=== PATIENT | female | born 1995 | race Caucasian/White ===

== ENCOUNTER 2018-05-21 20:17 | Observation (INO) ==
--- NOTE | 2018-05-21 20:49 | OB/GYN History & Physical ---
Date of Encounter: 05/21/18 Time of Encounter: 20:40 Assessment and Plan (1) Left leg swelling Current visit: Yes Status: Acute 1. Patient to receive lower left extremity doppler ultrasound for the assessment of DVT potential. History of Present Illness Chief complaint: Left-side swelling + edema HPI: Ms. Quevedo is a 23 year old female () presenting to [facility] at 34 weeks + 1 days for a one week history of progressive, worsening unilateral left-sided swelling which the patient states has become significantly worse over the past 48 hours. The patient is alert, sitting upright in hospital bed and engaged to conversation. She is answering questions appropriately, speech is fluid. There are no gross neurological deficits noted to physical exam. Review of systems: 1. The patient also admits to lower back pain at the level of the L5-S1 junction with radiculopathy into the left gluteal region. The patient states that her back pain is intermittent and exacerbated with movement. 2. The patient states that this is her first and denies any previous history of similar episode. 3. The patient denies headache, vision change, chest pain, shortness of breath, nausea and vomiting. Past Med Surg Social Fam HX - Past Medical History Medical history: other Additional medical history: Kidney Stones Psychiatric history: no psych history - Social History Smoking Status: Never smoker Smokeless Tobacco Status: No Alcohol use: none Drug use: none - Family History Mother Adopted: [place]: christina hnut Age: 43 Family Member Ethnicity: Non- Living Status: Still Living Hx Family Cardiac Disorders: No Hx Family Respiratory Disorders: No Hx Family Cancer: No Hx Family GI Disorders: No Hx Family Genitourinary Disorders: No Hx Family Endocrine Disorder: No Hx Family Musculoskeletal Disorders: No Hx Family Neuromuscular Disorders: No Hx Family Neurologic Disorders: No Hx Family HEENT Disorders: No Hx Family Autoimmune Disorders: No Hx Family Reproductive Disorders: No Hx Family Psychosocial Disorders: No Hx Family Medical Disorders: No Medications and Allergies Ondansetron HCl [Zofran] 4 mg PO Q6H PRN #20 tablet 02/11/17 [Rx] 3 Allergy/AdvReac Type Severity Reaction Status Date / Time No Known Allergies Allergy Verified 02/11/17 16:48 Review of System OB All systems PM: reviewed and no additional remarkable complaints except as stated Exam - Constitutional Constitutional: well developed, well nourished, no acute distress, average body habitus - HEENT HEENT: Normocephaly, Mucus Membranes Moist - Neck Neck exam: normal inspection, trachea midline - Lungs Respiratory exam: wheezes (Mild wheezes noted in the bilateral upper lung pierce ) - Cardiovascular Cardiovascular exam: RRR, +S1, +S2 - Extremities Extremities exam: normal capillary refill, pedal edema (1+ pitting edema in right lower extremity. 3+ pitting edema in left lower extremity ), warm, radial pulses palpable and symmetrical (There is slight swelling noted in the left upper extremity when compared to the right upper extremity. Pulse, motor and sensation are intact in all 4 extremities. ) Results All other labs normal. - VTE Reasons for not Prescribing Prophylaxis: Treatment not Indicated - Low risk for VTE
[2018-05-21 21:27] LABS: Amphetamine Screen,Urine Negative ng/mL (Cutoff=1000); Barbiturate Screen,Urine Negative ng/mL (Cutoff=200); Benzodiazepines Screen,Urine Negative ng/mL (Cutoff=200); Cannabinoid Screen,Urine Negative ng/mL (Cutoff = 50); Cocaine Screen,Urine Negative ng/mL (Cutoff= 300); Opiate Screen,Urine Negative ng/mL (Cutoff=300); Phencyclidine Screen,Urine Negative ng/mL (Cutoff=25)
== END 2018-05-21 22:23 | disposition home or self-care (01) ==
LOC: 1NENULAB
PROVIDERS: ADMIT Advanced Practice Midwife; ATTEND Advanced Practice Midwife

== ENCOUNTER → 2018-06-09 21:32 | Observation (INO) ==
[2018-06-09 20:41] LABS: Amphetamine Screen,Urine Negative ng/mL (Cutoff=1000); Barbiturate Screen,Urine Negative ng/mL (Cutoff=200); Benzodiazepines Screen,Urine Negative ng/mL (Cutoff=200); Cannabinoid Screen,Urine Negative ng/mL (Cutoff = 50); Cocaine Screen,Urine Negative ng/mL (Cutoff= 300); Opiate Screen,Urine Negative ng/mL (Cutoff=300); Phencyclidine Screen,Urine Negative ng/mL (Cutoff=25)
[~2018-06-09 21:32] MED LIST: Acetaminophen 325 MG TABLET PO ONE
--- NOTE | 2018-06-09 22:40 | OB/GYN Progress Note ---
Date of Encounter: 06/09/18 Time of Encounter: 22:40 - Assessment and Plan (1) 36 weeks gestation of Status: Acute (2) Elevated blood pressure affecting in third trimester, antepartum Status: Acute Patient with normal blood pressures and L&D triage, reviewed lab results that were drawn in office today, all PIH labs negative. Discharged home with labor and PIH precautions. Patient verbalizes understanding Subjective - Subjective Interval history: 36+ recessed recent presents to triage for PIH evaluation. Patient was seen in office today with Dr. Rowe, was noted to have markedly increase in edema and a 10 pound weight gain in last week. PIH labs were drawn in the office. Patient presents to triage with concern over blood pressure taken at home that was 138/100. Reports good movement, and occasional cramping since vaginal exam in office denies vaginal bleeding or leaking of fluid. Reports headache, relieved by Tylenol, denies right upper quadrant pain or visual disturbances Antepartum ROS: movement normal, contractions, no loss of fluid, no vaginal bleeding Objective - Vital Signs Vital Signs: Intake and Output 06/09/18 06/09/18 06/09/18 07:59 15:59 23:59 Other: Weight 95 kg Patient Weight 06/09/18 23:59 Weight 95 kg - Exam FHR: auscultation normal FHR comments: Baseline 145 Auscultation: bilateral: normal Abdomen: Present: soft, gravid Cervical dilation: Closed per RN Comments: +4 edema to bilateral lower extremities, +3 DTRs
== END | disposition home or self-care (01) ==
LOC: 1NENULAB
PROVIDERS: ADMIT Advanced Practice Midwife; ATTEND Advanced Practice Midwife

== ENCOUNTER 2018-06-19 22:54 | Inpatient (IN) ==
[2018-06-19 20:44] LABS: Basophils % 0.2 %; Eosinophils # 0.1 K/mcL (0.0-0.6); Eosinophils % 0.4 %; Hematocrit 37.4 % (35.3-44.9); Hemoglobin 12.6 g/dL (11.5-15.4); Immature Granulocytes % 0.9 % (0-4); Lymphocytes # 2.8 K/mcL (0.6-4.6); Mean Corpuscular HGB Conc 33.7 g/dL (31.6-35.5); Mean Corpuscular Hemoglobin 32.1 pg (28.0-33.3); Mean Corpuscular Volume 95.4 fL (83.0-100.0); Mean Platelet Volume 13.1 fL (9.4-12.4); Monocytes # 1.1 K/mcL (0.0-1.3); Monocytes % 8.9 %; Neutrophils # 8.6 K/mcL (1.6-8.9); Platelet Count 161 K/mcL (140-400); Red Blood Count 3.92 M/mcL (3.82-4.97); Red Cell Distribution Width 14.2 % (11.5-14.5); Segmented Neutrophils % 67.6 %
[2018-06-19 20:48] LABS: Bilirubin,Urine Negative (Negative); Blood,Urine Negative (Negative); Clarity,Urine Clear (Clear); Color,Urine Yellow (Yellow); Glucose,Urine (UA) Normal (Normal); Ketones,Urine Negative (Negative); Leukocyte Esterase,Urine Negative (Negative); Nitrite,Urine Negative (Negative); Protein,Urine Negative (Neg-Trace); Specific Gravity,Urine 1.006 (1.010-1.025); Urobilinogen,Urine Normal (Normal)
[2018-06-19 20:55] LABS: Amphetamine Screen,Urine Negative ng/mL (Cutoff=1000); Barbiturate Screen,Urine Negative ng/mL (Cutoff=200); Benzodiazepines Screen,Urine Negative ng/mL (Cutoff=200); Cannabinoid Screen,Urine Negative ng/mL (Cutoff = 50); Cocaine Screen,Urine Negative ng/mL (Cutoff= 300); Opiate Screen,Urine Negative ng/mL (Cutoff=300); Phencyclidine Screen,Urine Negative ng/mL (Cutoff=25); Protein/Creatinine Ratio,Urine 0.28 mg/mg (0.00-0.20)
[2018-06-19 21:01] LABS: Alanine Aminotransferase 9 Units/L (7-52); Aspartate Amino Transferase 18 Units/L (13-39); BUN/Creatinine Ratio 11 (6-26); Blood Urea Nitrogen 8 mg/dL (6-20); Lactate Dehydrogenase 146 Units/L (140-271); Uric Acid 7.3 mg/dL (2.3-7.6); eGFR For Non-African Americans > 60 (> 60)
--- NOTE | 2018-06-19 21:19 | OB/GYN History & Physical ---
Date of Encounter: 06/19/18 Time of Encounter: 21:17 Assessment and Plan (1) 38 weeks gestation of Current visit: Yes Status: Acute Admit for IOL secondary to preeclampsia POC per consult with Dr Moises Tavarez GBS negative Discussed risk of IOL with current bob score related to vaginal delivery vs . (2) Preeclampsia Current visit: Yes Status: Acute Qualifiers: Trimester: third trimester Qualified Code(s): O14.93 - Unspecified pre- eclampsia, third trimester History of Present Illness Chief complaint: Elevated blood pressures and feels bad x 2 days HPI: Ms. Quevedo is a 23 year old at 38 weeks and 1 day that presents to labor and delivery with c/o increased blood pressure in 130's/90-100's, headaches, seeing stars, and general malaise for 2 days. She states she had a PIH evaluation after being seen in the office last week and was discharged with PIH precautions. She states positive movement. She had a growth ultrasound completed on 06/16 with an EFW of 3970g in the 98% with an JEANA of 14. Labs: GBS negative Blood type O- Hep B Neg HIV NR Rubella immune Varicella immune RPR negative Past Med Surg Social Fam HX - Past Medical History Medical history: other Additional medical history: Kidney Stones, hypothyrodisim Psychiatric history: no psych history - Past Surgical History Additional surgical history: surgical kidney stone removal 08/2011 - Social History Smoking Status: Never smoker Smokeless Tobacco Status: No Alcohol use: none Drug use: none - Family History Mother Adopted: No Family Member Ethnicity: Non- Living Status: Still Living Hx Family Cardiac Disorders: No Hx Family Respiratory Disorders: No Hx Family Cancer: No Hx Family GI Disorders: No Hx Family Genitourinary Disorders: No Hx Family Endocrine Disorder: No Hx Family Musculoskeletal Disorders: No Hx Family Neuromuscular Disorders: No Hx Family Neurologic Disorders: No Hx Family HEENT Disorders: No Hx Family Autoimmune Disorders: No Hx Family Reproductive Disorders: No Hx Family Psychosocial Disorders: No Hx Family Medical Disorders: No Father Hx Family Cardiac Disorders: Yes (hypertension) Hx Family Respiratory Disorders: No Hx Family Cancer: No Hx Family GI Disorders: No Hx Family Genitourinary Disorders: No Hx Family Endocrine Disorder: No Hx Family Musculoskeletal Disorders: No Hx Family Neuromuscular Disorders: No Hx Family Neurologic Disorders: No Hx Family HEENT Disorders: No Hx Family Autoimmune Disorders: No Hx Family Reproductive Disorders: No Hx Family Psychosocial Disorders: No Obstetrical History - Pregnancies : 1 Para: 0 Term: 0 : 0 Ab's: 0 Livin Medications and Allergies [place] Thyroid 30 mg PO DAILY 06/19/18 [History] Tablet 1 tab PO DAILY 06/19/18 [History] 3 Allergy/AdvReac Type Severity Reaction Status Date / Time No Known Allergies Allergy Verified 02/11/17 16:48 Review of System OB All systems PM: reviewed and no additional remarkable complaints except as stated - Constitutional Constitutional ROS IM: as per HPI, fatigue, malaise - Integumentary Integumentary: swelling Exam - Constitutional Constitutional: well developed, well nourished, no acute distress, average body habitus - HEENT HEENT: Normocephaly, Mucus Membranes Moist - Neck Neck exam: full ROM - Lungs Respiratory exam: CTAB - Cardiovascular Cardiovascular exam: RRR, +S1, +S2 - Abdomen Abdomen: Present: bowel sounds normal, gravid, non tender - Extremities Extremities exam: normal capillary refill, normal inspection, pedal edema (2+), radial pulses palpable and symmetrical Deep Tendon Reflex Grade: 2+ Normal - Vulva Vulva: bilateral: normal - Cervix Dilation: 0 Effacement: 50 Station: -2 Results Result Diagrams: 06/19/18 20:31 06/19/18 20:31 Abnormal lab results WBC 12.7 K/mcL (4.3-11.1) H 06/19/18 20:31 MPV 13.1 fL (9.4-12.4) H 06/19/18 20:31 Ur Specific [place] 1.006 (1.010-1.025) L 06/19/18 20:31 Protein/Creatinin Ratio 0.28 mg/mg (0.00-0.20) H 06/19/18 20:31 All other labs normal. - VTE Reasons for not Prescribing Prophylaxis: Treatment not Indicated - Low risk for VTE
[~2018-06-19 22:54] MED LIST changes: +*HR* Nalbuphine 10 MG/ML AMPUL IVP PRN; -Acetaminophen 325 MG TABLET PO ONE; +Famotidine 20 MG/2 ML VIAL IVP PRN; +Metoclopramide 10 MG/2 ML VIAL IVP PRN; +Naloxone 0.4 MG/ML INJ IVP PRN; +Ringers Solution, Lactated 1,000 ML IVC SCH
--- NOTE | 2018-06-19 23:39 | OB Labor Progress Note ---
Date of Encounter: 06/19/18 Time of Encounter: 23:37 Labor Progress Note - Subjective Subjective: Pt feeling cramps. Pt also with headache. - Cervix Cervix: cl/50/-3, post. - Heart Tones Heart Tones: RNST - [place]: irregular contractions - Interventions Interventions: Attempt made at placement of malcolm catheter with guide wire, then speculum and guide wire, then with assistance of ring forceps. Pt very tense and did not tolerate well. Cervix is very posterior. Will place cervidil. - Plan Plan: Will place cervidil. Attempted malcolm cath placement was unsucessful. weight expected to be 8lb 15 oz. Given unfavorable cervix d/w pt option of primary . She declines this at this time and desires trial of labor.
[2018-06-20] MEDS: Ondansetron 4 MG/2 ML VIAL IVP PRN ×2 (01:39→07:39)
[2018-06-20] MEDS ORDERED: Penicillin G Potassium 5,000,000 UNIT in 0.9 % Sodium Chloride Mini Bag 100 ML IVPB ONE (02:05)
[2018-06-20] MEDS ORDERED: Penicillin G Potassium 2,500,000 UNIT in 0.9 % Sodium Chloride 100 ML IVPB SCH (04:00)
--- NOTE | 2018-06-20 10:12 | OB/GYN Progress Note ---
Date of Encounter: 06/20/18 Time of Encounter: 10:00 - Assessment and Plan (1) First in adolescent 16 years of age or older in third trimester Current Visit: Yes Status: Acute (2) Mild preeclampsia Current Visit: Yes Status: Acute We will admit the patient to the antepartum floor where we will start a 24 urine protein and repeat PIH labs in a.m. Qualifiers: Trimester: third trimester Qualified Code(s): O14.03 - Mild to moderate pre -eclampsia, third trimester (3) 38 weeks gestation of Current Visit: Yes Status: Acute Subjective - Subjective Interval history: Patient complaining of occasional headaches occasional scotoma and occasional blurred vision but not sure this because she is just waking up. Patient's blood pressure has been stable throughout the night and she is just having irritability from the Cervidil. Did have a long discussion with the patient about her situation she does show signs of mild preeclampsia but she has a very unfavorable cervix and it is very difficult for us to evaluate her. I did attempt to do a pelvic exam on her but she clamps her legs down and I cannot feel the cervix to even see whether or not she is dilated. We attempted multiple times just a day to put a Vaughn in even with a speculum unsuccessfully. We did talk to anesthesia about an early epidural however after long discussion I feel we still too early to proceed on with induction at this time and I would recommend admitting her to the antepartum floor repeating PIH labs and doing a 24-hour urine. Her protein creatinine ratio did increase after a week from 0.19-0.28 and I do suspect that this is coming get worse with time. She does have an LGA baby which might be why we cannot feel the cervix well. At this particular time being only 38 weeks and 2 days it is difficult to proceed on directly with a section without a trial of labor and without additional lab work or 24 urine to justify her preeclamptic status. Did have a long discussion with the patient and she is okay with going to the floor where we can allow her to eat shower and start the 24 hour urine Antepartum ROS: movement normal Objective - Vital Signs Vital Signs: Intake and Output 06/19/18 06/20/18 06/20/18 23:59 07:59 15:59 Other: Weight 95.6 kg - Exam FHR: category 1 FHR comments: heart tones 140s reactive irritability noted from the cervidil Abdomen: Present: normal appearance, soft, gravid Cervical dilation: closed Cervix effacement: 50 station: -3 ballotable - Labs Labs: Abnormal lab results WBC 12.7 K/mcL (4.3-11.1) H 06/19/18 20:31 MPV 13.1 fL (9.4-12.4) H 06/19/18 20:31 Ur Specific [place] 1.006 (1.010-1.025) L 06/19/18 20:31 Protein/Creatinin Ratio 0.28 mg/mg (0.00-0.20) H 06/19/18 20:31
[2018-06-20] MEDS ORDERED: Ondansetron ODT 4 MG TAB.RAPDIS SL PRN (12:08)
[2018-06-20] MEDS ORDERED: Acetaminophen 325 MG TABLET PO PRN (12:08)
[2018-06-20 12:56] LABS: Basophils % 0.2 %; Eosinophils % 0.1 %; Hematocrit 33.9 % (35.3-44.9); Hemoglobin 11.4 g/dL (11.5-15.4); Immature Granulocytes % 0.5 % (0-4); Lymphocytes # 1.7 K/mcL (0.6-4.6); Lymphocytes % 10.6 %; Mean Corpuscular HGB Conc 33.6 g/dL (31.6-35.5); Mean Corpuscular Hemoglobin 32.1 pg (28.0-33.3); Mean Corpuscular Volume 95.5 fL (83.0-100.0); Mean Platelet Volume 13.2 fL (9.4-12.4); Neutrophils # 13.6 K/mcL (1.6-8.9); Platelet Count 147 K/mcL (140-400); Red Blood Count 3.55 M/mcL (3.82-4.97); Red Cell Distribution Width 14.2 % (11.5-14.5); Segmented Neutrophils % 82.6 %
[2018-06-20 13:12] LABS: Alanine Aminotransferase 10 Units/L (7-52); Aspartate Amino Transferase 18 Units/L (13-39); BUN/Creatinine Ratio 15 (6-26); Blood Urea Nitrogen 9 mg/dL (6-20); Lactate Dehydrogenase 142 Units/L (140-271); Uric Acid 7.6 mg/dL (2.3-7.6); eGFR For Non-African Americans > 60 (> 60)
[2018-06-20] MEDS: Thyroid (Amour) 30 MG TABLET PO SCH (13:16)
[2018-06-21] MEDS: Thyroid (Amour) 30 MG TABLET PO SCH (08:25)
[2018-06-21] MEDS ORDERED: Prenatal Vit/FA 1 EACH TABLET PO SCH (09:00)
[2018-06-21 11:32] LABS: Total Volume 24 Hour,Urine 2.21 Liters (0.60-1.60)
[2018-06-21 11:32] LABS: Total Volume 24 Hour,Urine 2.21 Liters (0.60-1.60)
[2018-06-21 11:45] LABS: Protein/Creatinine Ratio,Urine 0.19 mg/mg (0.00-0.20)
--- NOTE | 2018-06-21 15:08 | OB/GYN Progress Note ---
Date of Encounter: 06/21/18 Time of Encounter: 15:04 - Assessment and Plan (1) Severe headache Current Visit: Yes Status: Acute Suspect pt is symptomatic b/c of likely impending preeclampsia vs preeclampsia (2) 38 weeks gestation of Current Visit: Yes Status: Acute RNST (3) Elevated blood pressure affecting in third trimester, antepartum Current Visit: No Status: Acute As per [place] pt with atleast gestational hypertension and possibly preeclmapsia with severe DENNIS and swelling. D/w [facility] MFM and they advise proceeding with delivery. EFWT is > 98% and her cervix is very unfavorable. Given the above pt desires primary . She is aware of operative risks and appropriate consent has been obtained Subjective - Subjective Principal diagnosis: 38w3d gestation, gestational hypertension, severe headache (intractable), n Interval history: 23yo female at 38w3d gestation admitted Alli night with elevated BP's 130 's-140's/90's-102 with DENNIS for 2 days that was not resolved with Tylenol. She also has nausea without emesis. She reports worsening of edema. OnL&D her BP' s improved, her labs were normal though her Protein/Creatinine ration had worsened and Uric acid and Cr were relatively elevated. B/c or Prot/Cr ratio was 0.28 and her cervix was extremly unfavorable decision was made to transfer to [facility] for 24 hour urine. Today she continues to have severe DENNIS and she hasn't taken Tylenol b/c it doesn't help. Her DTR's are 3+ and she has one beat of clonus. Her BP's have improved. Her 24 hour proten was 265. Of note her EFWT was >98%. I have spoken with [facility] and the agree that pt likely has preeclampsia based on neurologic sx's and delivery is indicated, they also state given her gestational age delivery is indicated. Pt is worried about trial of labor b/c attempts at cervical ripening 2 nights ago were very painful and her baby is estimated to be quite big and her cervix is unfavorable therefore she requests primary . Objective - Vital Signs Vital Signs: Vital Signs Temp Pulse Resp BP Pulse Ox 06/21/18 12:11 97.6 F 98 14 130/88 98 06/21/18 08:10 98.3 F 99 16 112/73 98 06/21/18 03:49 98.0 F 91 16 106/66 98 06/21/18 00:13 98.1 F 88 16 105/67 98 06/20/18 19:30 97.8 F 102 14 129/88 98 06/20/18 15:42 97.9 F 95 16 109/69 Intake and Output 06/20/18 06/21/18 06/21/18 23:59 07:59 15:59 Intake Total 400 / 400 0 / 0 Output Total 950 / 950 400 / 400 450 / 450 Balance -550 / -550 -400 / -400 -450 / -450 Intake: Oral 400 / 400 0 / 0 Output: Urine 950 / 950 400 / 400 450 / 450 Other: Meal Dinner Percent of Meal Consumed 100% Weight 95.436 kg Patient Weight 06/21/18 23:59 Weight 95.436 kg - Exam FHR: category 1 Auscultation: bilateral: normal Abdomen: Present: gravid Cervical dilation: cl Cervix effacement: th station: -2 - Labs Labs: Abnormal lab results WBC 16.4 K/mcL (4.3-11.1) H 06/20/18 12:39 RBC 3.55 M/mcL (3.82-4.97) L 06/20/18 12:39 Hgb 11.4 g/dL (11.5-15.4) L 06/20/18 12:39 Hct 33.9 % (35.3-44.9) L 06/20/18 12:39 MPV 13.2 fL (9.4-12.4) H 06/20/18 12:39 Neutrophils # 13.6 K/mcL (1.6-8.9) H 06/20/18 12:39 Ur Specific [place] 1.006 (1.010-1.025) L 06/19/18 20:31 Urine Total Volume 2.21 Liters (0.60-1.60) H 06/21/18 10:20 Ur Total Protein 24 Hr 265 mg/day (50-80) H 06/21/18 10:15
[2018-06-21] MEDS ORDERED: Ringers Solution, Lactated 1,000 ML IVC SCH ×4 (15:30→17:00)
[2018-06-21 15:45] LABS: Basophils % 0.2 %; Eosinophils % 0.1 %; Hematocrit 36.6 % (35.3-44.9); Hemoglobin 12.2 g/dL (11.5-15.4); Immature Granulocytes % 0.7 % (0-4); Lymphocytes # 2.3 K/mcL (0.6-4.6); Lymphocytes % 19.9 %; Mean Corpuscular HGB Conc 33.3 g/dL (31.6-35.5); Mean Corpuscular Hemoglobin 31.7 pg (28.0-33.3); Mean Corpuscular Volume 95.1 fL (83.0-100.0); Monocytes # 0.9 K/mcL (0.0-1.3); Monocytes % 7.4 %; Neutrophils # 8.3 K/mcL (1.6-8.9); Platelet Count 158 K/mcL (140-400); Red Blood Count 3.85 M/mcL (3.82-4.97); Red Cell Distribution Width 14.5 % (11.5-14.5); Segmented Neutrophils % 71.7 %
[2018-06-21] MEDS ORDERED: *HR* Morphine Sulfate/PF 10 MG/10 ML AMPUL ONE (15:53)
[2018-06-21] MEDS ORDERED: *HR* FentaNYL (PF) 100 MCG/2 ML VIAL ONE (15:53)
[2018-06-21] MEDS ORDERED: Ondansetron 4 MG/2 ML VIAL ONE (15:54)
[2018-06-21] MEDS ORDERED: Lidocaine -MPF 1% 5 ML AMPUL ONE (15:54)
[2018-06-21] MEDS ORDERED: *HR* Oxytocin 10 UNIT/ML VIAL IM ONE (15:54)
[2018-06-21] MEDS ORDERED: EPHEDrine 50 MG/ML VIAL ONE (15:54)
[2018-06-21] MEDS ORDERED: Water for inj. (sterile) 10 ML IV ONE (15:54)
[2018-06-21] MEDS ORDERED: *HR* Phenylephrine 10 MG/ML VIAL ONE (15:59)
[2018-06-21 16:01] LABS: Alanine Aminotransferase 11 Units/L (7-52); Aspartate Amino Transferase 26 Units/L (13-39); BUN/Creatinine Ratio 11 (6-26); Blood Urea Nitrogen 7 mg/dL (6-20); Lactate Dehydrogenase 210 Units/L (140-271); Uric Acid 7.9 mg/dL (2.3-7.6); eGFR For Non-African Americans > 60 (> 60)
[2018-06-21] MEDS ORDERED: Famotidine 20 MG/2 ML VIAL IVP ONE (16:13)
[2018-06-21] MEDS ORDERED: CeFAZolin Premix DUPLEX 2,000 MG/50 ML BAG IVPB ONE (16:13)
[2018-06-21] MEDS ORDERED: Metoclopramide 10 MG/2 ML VIAL IVP ONE (16:13)
[2018-06-21] MEDS ORDERED: Oxytocin 20 units/ LR 1000 mL 20 UNIT/1,000 ML BAG IVC ONE (16:13)
[2018-06-21] MEDS ORDERED: Oxytocin 20 units/ LR 1000 mL 20 UNIT/1,000 ML BAG IVC SCH ×2 (16:15→19:32)
[2018-06-21] MEDS ORDERED: *HR* Promethazine 25 MG/ML VIAL IVP PRN ×2 (16:55→21:41)
[2018-06-21] MEDS ORDERED: Acetaminophen IV 1,000 MG/100 ML INFUS..BTL IVPB ONE (16:55)
[2018-06-21] MEDS ORDERED: Naloxone 0.4 MG/ML INJ IVP PRN (16:55)
[2018-06-21] MEDS ORDERED: Ondansetron 4 MG/2 ML VIAL IVP ONE (16:55)
[2018-06-21] MEDS ORDERED: *HR* OxyCODONE Immed Rel 5 MG TABLET PO PRN (16:55)
[2018-06-21] MEDS ORDERED: *HR* Morphine 2 MG/ML SYRINGE IVP PRN ×2 (16:55→19:30)
--- NOTE | 2018-06-21 16:55 | Anesthesia Evaluation PreOp ---
Date of Encounter: 06/21/18 Time of Encounter: 16:54 - Past History Planned Operation: Primary C/S Cardiac History: Denies any Significant Hx Pulmonary History: Denies Any Significant HX JAVA GOLDEN GATE DEVELOPER History: Denies Any Significant HX Other Medical History: Thyroid Anesthesia History: No Prior Anesthetic Complications, Past Anesthesia Alcohol Use: none Drug use: none Medications and Allergies [place] Thyroid 30 mg PO DAILY 06/19/18 [History] Tablet 1 tab PO DAILY 06/19/18 [History] 3 Allergy/AdvReac Type Severity Reaction Status Date / Time No Known Allergies Allergy Verified 02/11/17 16:48 - Meds/Allergy Pre-op Review Medications Reviewed: Yes Allergies Reviewed: Yes Beta Blockers on Current Med List: No Anesthesia Results - Labs 06/21/18 15:03 06/21/18 15:03 Anesthesia Exam O2 Sat Weight 95.436 kg O2 Sat by Pulse Oximetry 98 O2 Sat by Pulse Oximetry 98 O2 Sat by Pulse Oximetry 98 O2 Sat by Pulse Oximetry 98 O2 Sat by Pulse Oximetry 98 Vital Signs Temp Pulse Resp BP Pulse Ox 97.7 F 98 20 126/85 98 06/20/18 11:14 06/20/18 11:14 06/20/18 11:14 06/20/18 11:14 06/20/18 11:14 NPO (# of Hours): 4 Pain Scale: 2 Pain Scale Used: Numeric (1 - 10) - HEENT Pupil (Motor): Pupils equal Mallampati: II Teeth: Normal Oral Opening: Greater than 3 - JAVA GOLDEN GATE DEVELOPER LOC: Oriented JAVA GOLDEN GATE DEVELOPER Motor: Normal RUE, Normal LUE, Normal RLE, Normal LLE, Normal Face JAVA GOLDEN GATE DEVELOPER Sensory: Normal: RUE, LUE, RLE, LLE, Face - Cardiac Rhythm: Regular Murmur: None JVD: No Carotid Bruit: No - Pulmonary Breath Sounds: bilateral Clear Respiratory Effort: Symmetrical Anesthesia Assess/Plan ASA Score: 2 Modified Terrell Scale for Level of Consciousness: Cooperative, oriented, and tranquil Anesthetic Plan: General (plan b), Regional (plan a) Autologous Blood: Yes Monitoring Plan: Standard Monitors Recovery Plan: PACU
--- NOTE | 2018-06-21 17:30 | Anesthesia Procedures ---
Date of Encounter: 06/21/18 Time of Encounter: 17:22 Procedures: Anesthesia - Epidural/Spinal Patient ID/Chart reviewed: Yes Patient examined: Yes OB Eval: Gestational age: 38.4 OB Eval: : 1 OB Eval: Hx Para: 0 OB Eval: Contractions: Non-stressed pattern Consent Obtained: Yes Supplemental Oxygen: Nasal Cannula Supplemental Oxygen Rate (L/min): 2 Site Prep: Aseptic Technique, Sterile prep and drape, Povidone-Iodine 1% Patient position: upright Local Anesthetic: Lidocaine 1% Amount of Local Anesthetic used: 3 Interspace Used: L4-L5 Blood: No CSF: Yes Paresthesia: No Spinal Needle Gauge: 25 (Pencan) Spinal Dose: 15mcg fent 0.2mg duramorph 12mg bupivacaine Procedure: pt tolerated procedure well. no complications. vss fhr stable. spinal time = 1722
--- NOTE | 2018-06-21 18:38 | OB/GYN Procedure Note ---
Section - Date of procedure: 06/21/18 Preop diagnosis: other (gestational hypertension with intractable headache ( probable preeclampsia), macrosomia, desires primary ) Post-op diagnosis: same Procedure: section, primary low transverse Surgeon: Berry Horton Blood Loss: 500 Was there an behavioral modification assistant present: Yes Senior Mechanical Estimator: Risa Corona Anesthesia Type: Spinal Disposition: L&D Recovery Room Specimens: Placenta - Infant (s) Infant A Infant Delivery Date: 06/21/18 Infant Delivery Time: 17:46 Presentation: vertex Gender: Male Viability: Viable Pounds: 8 Ounces: 11 at 1 minute: 8 at 5 minutes: 9 Specimens collected: cord blood Placenta: spontaneous Cord: nuchal cord, 3 umbilical vessels - Narrative Narrative: Patient's 23-year-old 1 para 0 female at 38-3/7 weeks gestation who was admitted to labor and delivery for elevated blood pressure swelling and headache. Initially induction was begun however her cervix was unfavorable therefore she was admitted for observation 24 urine. 24 urine came back 265 her PIH labs were normal though her uric acid cretin a relatively high. She came to have severe headaches did not respond to Tylenol and emesis which required Zofran. She was hyperreflexic with 3+ DTRs and one beat of clonus. I did discuss case with maternal medicine doctor [facility] he did advise delivery for gestational hypertension, probable preeclampsia with neurologic symptoms. Patient did have a very unfavorable cervix and suspected macrosomia with estimated weight greater than 90th percentile therefore she elected for primary section. She was aware operative risks and signed appropriate consent. Description of procedure patient was taken operating room where spinal anesthesia was administered. She is prepped draped in usual sterile fashion. Bladder was drained of clear urine. Scalp was used to make a Pfannenstiel skin incision was sharply take down the rectus fascia. Rectus fascia was incised midline fascial incision was extended bilaterally. Rectus muscles divided and peritoneum was entered entered. Bladder blade was placed bladder flap was developed and bladder blade was repositioned. Scalpel was used to make a low transverse uterine incision which was extended bluntly bilaterally. Membranes ruptured clear fluid. was delivered from vertex presentation. There was a loose nuchal cord 1 was easily reduced. Cord was clamped and cut and was handed nurse personnel who were in attendance. weight was found to be 8 lbs. 11 oz. Apgars of 8 at 1 minute and 9 at 5 minutes. Placenta was delivered manually without difficulty. Uterine cavity was massaged free of all residual tissue. Uterus closed the Vicryl running lock stitch. A single [id number] stitch was placed in the midline for small oozing. Irrigation was performed hemostasis was ensured. Fascia was closed with 0 Vicryl in a running manner. After close the fascia again irrigation was performed hemostasis was ensured. Skin edges reapproximated with 4-0 Vicryl. All sponge and instruments counts are correct patient was taken to recovery in good condition.
[2018-06-21] MEDS ORDERED: *HR* HYDROmorphone 2 MG TABLET PO PRN (18:56)
--- NOTE | 2018-06-21 19:30 | Anesthesia Evaluation Post Op ---
Date of Encounter: 06/21/18 Time of Encounter: 19:30 - Lungs Lungs: Clear Ascult./Percussion - Airway Airway: Non-obstructed - Cardiovascular Regular Rate, Baseline Rhythm - Mental Status Mental Status: Alert & Oriented, Answers Appropriately - Pain Pain Scale: 2 Pain Scale used: Numeric (1 - 10) - Nausea Vomiting Nausea Vomiting: Not Present - Hydration Hydration: NPO, Vaughn catheter - Discharge PostOp Status: Transfer Patient to floor
[2018-06-21] MEDS ORDERED: Simethicone 80 MG TAB.CHEW PO PRN (19:32)
[2018-06-21] MEDS ORDERED: Sennosides 8.6 MG TABLET PO PRN (19:32)
[2018-06-21] MEDS ORDERED: Ondansetron 4 MG/2 ML VIAL IVP PRN (19:32)
[2018-06-21] MEDS ORDERED: Metoclopramide 10 MG/2 ML VIAL IVP PRN (19:32)
[2018-06-21] MEDS ORDERED: Rho Immune Globulin 1,500 UNIT SYRINGE IM ONE (19:32)
[2018-06-22 02:40] LABS: Basophils % 0.1 %; Hematocrit 31.5 % (35.3-44.9); Hemoglobin 10.8 g/dL (11.5-15.4); Immature Granulocytes % 0.7 % (0-4); Lymphocytes # 1.6 K/mcL (0.6-4.6); Lymphocytes % 11.4 %; Mean Corpuscular HGB Conc 34.3 g/dL (31.6-35.5); Mean Corpuscular Hemoglobin 32.6 pg (28.0-33.3); Mean Corpuscular Volume 95.2 fL (83.0-100.0); Mean Platelet Volume 12.5 fL (9.4-12.4); Monocytes % 6.7 %; Neutrophils # 11.6 K/mcL (1.6-8.9); Platelet Count 128 K/mcL (140-400); Red Blood Count 3.31 M/mcL (3.82-4.97); Red Cell Distribution Width 14.3 % (11.5-14.5); Segmented Neutrophils % 81.1 %
[2018-06-22 02:58] LABS: Alanine Aminotransferase 10 Units/L (7-52); Aspartate Amino Transferase 26 Units/L (13-39); BUN/Creatinine Ratio 14 (6-26); Blood Urea Nitrogen 8 mg/dL (6-20); Lactate Dehydrogenase 214 Units/L (140-271); Uric Acid 7.9 mg/dL (2.3-7.6); eGFR For Non-African Americans > 60 (> 60)
[2018-06-22] MEDS: Ibuprofen 600 MG TABLET PO PRN ×3 (03:25→18:05)
[2018-06-22] MEDS: Prenatal Vit/FA 1 EACH TABLET PO SCH (07:41)
[2018-06-22] MEDS: Thyroid (Amour) 30 MG TABLET PO SCH (07:41)
--- NOTE | 2018-06-22 08:49 | OB/GYN Progress Note ---
Date of Encounter: 06/22/18 Time of Encounter: 08:47 - Assessment and Plan (1) Status post delivery Current Visit: Yes Status: Acute Stable POD#1 Continue current management Anticipate discharge tomorrow. (2) Mother currently breast-feeding Current Visit: Yes Status: Acute Subjective - Subjective Interval history: Pt states feels well, pain well managed on po pain medication, tolerates regular diet, +flatus, Patient reports: appetite normal, voiding normally, pain well controlled, ambulating normally : doing well, nursing well Objective - Vital Signs Latest vital signs: Vital Signs Temp Pulse Resp BP Pulse Ox 06/22/18 08:31 16 06/22/18 07:55 97.5 F L 95 16 118/83 98 06/22/18 03:15 98.5 F 100 14 114/75 97 06/22/18 00:45 98.6 F 97 16 120/79 98 06/21/18 22:30 97.7 F 101 14 117/74 100 06/21/18 22:00 97.5 F L 106 14 119/76 98 06/21/18 21:20 97.6 F 104 16 123/72 97 06/21/18 12:11 97.6 F 98 14 130/88 98 Intake and Output 06/21/18 06/22/18 06/22/18 23:59 07:59 15:59 Output Total 340 / 340 Balance -340 / -340 Output: Catheter 340 / 340 Other: Weight 92.4 kg Patient Weight 06/22/18 23:59 Weight 92.4 kg - Exam Lungs: bilateral: normal Chest: Normal S1, Normal S2 Extremities: Present: normal Abdomen: Present: normal appearance, soft Incision: Present: dressed Uterus: Present: firm (U) - Labs Labs: Laboratory Results - last 24 hr 06/21/18 06/21/18 06/21/18 10:15 10:20 15:03 WBC 11.6 H RBC 3.85 Hgb 12.2 Hct 36.6 MCV 95.1 MCH 31.7 MCHC 33.3 RDW 14.5 Plt Count 158 MPV 13.0 H Immature Gran % 0.7 Seg Neutrophils % 71.7 Lymphocytes % 19.9 Monocytes % 7.4 Eosinophils % 0.1 Basophils % 0.2 Neutrophils # 8.3 Lymphocytes # 2.3 Monocytes # 0.9 Eosinophils # 0.0 Basophils # 0.0 BUN Creatinine Est GFR ( Amer) Est GFR (Non-Af Amer) BUN/Creatinine Ratio Uric Acid AST ALT Lactate Dehydrogenase Urine Total Volume 2.21 H 2.21 H Urine Creatinine 62 62 Ur Creatinine 24 Hour 1370 1370 Creatinine Clearance 153 Ur Total Protein 24 Hr 265 H Protein/Creatinin Ratio 0.19 Urine Total Protein 12 06/21/18 06/22/18 06/22/18 15:03 02:27 02:27 WBC 14.3 H RBC 3.31 L Hgb 10.8 L Hct 31.5 L MCV 95.2 MCH 32.6 MCHC 34.3 RDW 14.3 Plt Count 128 L MPV 12.5 H Immature Gran % 0.7 Seg Neutrophils % 81.1 Lymphocytes % 11.4 Monocytes % 6.7 Eosinophils % 0.0 Basophils % 0.1 Neutrophils # 11.6 H Lymphocytes # 1.6 Monocytes # 1.0 Eosinophils # 0.0 Basophils # 0.0 BUN 7 8 Creatinine 0.66 0.57 L Est GFR ( Amer) > 60 > 60 Est GFR (Non-Af Amer) > 60 > 60 BUN/Creatinine Ratio 11 14 Uric Acid 7.9 H 7.9 H AST 26 26 ALT 11 10 Lactate Dehydrogenase 210 214 Urine Total Volume Urine Creatinine Ur Creatinine 24 Hour Creatinine Clearance Ur Total Protein 24 Hr Protein/Creatinin Ratio Urine Total Protein
[2018-06-22] MEDS ORDERED: Rho Immune Globulin 1,500 UNIT SYRINGE IM ONE (12:00)
[2018-06-23] MEDS: Ibuprofen 600 MG TABLET PO PRN ×2 (00:25→07:51)
[2018-06-23] MEDS: Prenatal Vit/FA 1 EACH TABLET PO SCH (07:49)
[2018-06-23] MEDS: Thyroid (Amour) 30 MG TABLET PO SCH (07:49)
[2018-06-23 08:30] VITALS: BP 115/79
--- NOTE | 2018-06-23 09:13 | Discharge Summary ---
Date of Encounter: 06/23/18 Time of Encounter: 09:11 - Discharge Diagnosis (1) Mother currently breast-feeding Priority: Secondary Status: Acute Comments: well established. (2) Preeclampsia Priority: Secondary Status: Acute Comments: Blood pressure normal. No sx preeclampsia today. Qualifiers: Trimester: third trimester Qualified Code(s): O14.93 - Unspecified pre- eclampsia, third trimester (3) Status post delivery Priority: Primary Status: Acute Comments: Pt meeting all post-op milestones. She desires discharge home today. - Discharge Medications Prescriptions: Ondansetron ODT [Zofran ODT] 4 mg SL Q6HR PRN #20 tab.rapdis PRN Reason: Nausea And Vomiting Oxycodone HCl/Acetaminophen [Percocet 5-325 mg Tablet] 1 each PO Q6HR PRN 3 Days #10 tablet PRN Reason: Severe Pain Breast Pump [BREAST PUMP] 1 each .ROUTE AD #1 each Docusate [Colace] 100 mg PO BID #60 capsule Ibuprofen [Motrin] 600 mg PO Q6H PRN #60 tablet PRN Reason: Cramping Home Medications: Salome Thyroid 30 mg PO DAILY 06/19/18 [History] Tablet 1 tab PO DAILY 06/19/18 [History] Breast Pump [BREAST PUMP] 1 each .ROUTE AD #1 each 06/23/18 [Rx] Docusate [Colace] 100 mg PO BID #60 capsule 06/23/18 [Rx] Ibuprofen [Motrin] 600 mg PO Q6H PRN #60 tablet 06/23/18 [Rx] Ondansetron ODT [Zofran ODT] 4 mg SL Q6HR PRN #20 tab.rapdis 06/23/18 [Rx] Oxycodone HCl/Acetaminophen [Percocet 5-325 mg Tablet] 1 each PO Q6HR PRN 3 Days #10 tablet 06/23/18 [Rx] Simethicone [Gas-X] 80 mg PO TID PRN tab.chew 06/23/18 [Rx] Allergies/Adverse Reactions: 3 Allergy/AdvReac Type Severity Reaction Status Date / Time No Known Allergies Allergy Verified 02/11/17 16:48 Data Procedures and tests throughout hospitalization: Laboratory Tests 06/19/18 06/19/18 06/19/18 20:31 20:31 20:31 WBC RBC Hgb Hct MCV MCH MCHC RDW Plt Count MPV Immature Gran % Seg Neutrophils % Lymphocytes % Monocytes % Eosinophils % Basophils % Neutrophils # Lymphocytes # Monocytes # Eosinophils # Basophils # BUN Creatinine 0.71 Est GFR ( Amer) Est GFR (Non-Af Amer) BUN/Creatinine Ratio Uric Acid AST ALT Lactate Dehydrogenase Urine Color Yellow Urine Clarity Clear Urine pH 7.0 Ur Specific [place] 1.006 L Urine Protein Negative Urine Glucose (UA) Normal Urine Ketones Negative Urine Blood Negative Urine Nitrite Negative Urine Bilirubin Negative Urine Urobilinogen Normal Ur Leukocyte Esterase Negative Urine Total Volume Urine Creatinine 32 Ur Creatinine 24 Hour Creatinine Clearance Ur Total Protein 24 Hr Protein/Creatinin Ratio 0.28 H Urine Total Protein 9 Urine Opiates Screen Ur Barbiturates Screen Ur Phencyclidine Scrn Ur Amphetamines Screen U Benzodiazepines Scrn Urine Cocaine Screen U Marijuana (THC) Screen Ur Drug Screen Interp Screen Baby's Blood Type Mother's Blood Type Rhogam Indicated Rhogam Req for Mother 06/19/18 06/19/18 06/19/18 20:31 20:31 20:31 WBC 12.7 H RBC 3.92 Hgb 12.6 Hct 37.4 MCV 95.4 MCH 32.1 MCHC 33.7 RDW 14.2 Plt Count 161 MPV 13.1 H Immature Gran % 0.9 Seg Neutrophils % 67.6 Lymphocytes % 22.0 Monocytes % 8.9 Eosinophils % 0.4 Basophils % 0.2 Neutrophils # 8.6 Lymphocytes # 2.8 Monocytes # 1.1 Eosinophils # 0.1 Basophils # 0.0 BUN 8 Creatinine 0.73 Est GFR ( Amer) > 60 Est GFR (Non-Af Amer) > 60 BUN/Creatinine Ratio 11 Uric Acid 7.3 AST 18 ALT 9 Lactate Dehydrogenase 146 Urine Color Urine Clarity Urine pH Ur Specific [place] Urine Protein Urine Glucose (UA) Urine Ketones Urine Blood Urine Nitrite Urine Bilirubin Urine Urobilinogen Ur Leukocyte Esterase Urine Total Volume Urine Creatinine Ur Creatinine 24 Hour Creatinine Clearance Ur Total Protein 24 Hr Protein/Creatinin Ratio Urine Total Protein Urine Opiates Screen Negative Ur Barbiturates Screen Negative Ur Phencyclidine Scrn Negative Ur Amphetamines Screen Negative U Benzodiazepines Scrn Negative Urine Cocaine Screen Negative U Marijuana (THC) Screen Negative Ur Drug Screen Interp See Below Screen Baby's Blood Type Mother's Blood Type Rhogam Indicated Rhogam Req for Mother 06/20/18 06/20/18 06/21/18 12:39 12:39 10:15 WBC 16.4 H RBC 3.55 L Hgb 11.4 L Hct 33.9 L MCV 95.5 MCH 32.1 MCHC 33.6 RDW 14.2 Plt Count 147 MPV 13.2 H Immature Gran % 0.5 Seg Neutrophils % 82.6 Lymphocytes % 10.6 Monocytes % 6.0 Eosinophils % 0.1 Basophils % 0.2 Neutrophils # 13.6 H Lymphocytes # 1.7 Monocytes # 1.0 Eosinophils # 0.0 Basophils # 0.0 BUN 9 Creatinine 0.62 Est GFR ( Amer) > 60 Est GFR (Non-Af Amer) > 60 BUN/Creatinine Ratio 15 Uric Acid 7.6 AST 18 ALT 10 Lactate Dehydrogenase 142 Urine Color Urine Clarity Urine pH Ur Specific [place] Urine Protein Urine Glucose (UA) Urine Ketones Urine Blood Urine Nitrite Urine Bilirubin Urine Urobilinogen Ur Leukocyte Esterase Urine Total Volume 2.21 H Urine Creatinine 62 Ur Creatinine 24 Hour 1370 Creatinine Clearance Ur Total Protein 24 Hr 265 H Protein/Creatinin Ratio 0.19 Urine Total Protein 12 Urine Opiates Screen Ur Barbiturates Screen Ur Phencyclidine Scrn Ur Amphetamines Screen U Benzodiazepines Scrn Urine Cocaine Screen U Marijuana (THC) Screen Ur Drug Screen Interp Screen Baby's Blood Type Mother's Blood Type Rhogam Indicated Rhogam Req for Mother 06/21/18 06/21/18 06/21/18 10:20 15:03 15:03 WBC 11.6 H RBC 3.85 Hgb 12.2 Hct 36.6 MCV 95.1 MCH 31.7 MCHC 33.3 RDW 14.5 Plt Count 158 MPV 13.0 H Immature Gran % 0.7 Seg Neutrophils % 71.7 Lymphocytes % 19.9 Monocytes % 7.4 Eosinophils % 0.1 Basophils % 0.2 Neutrophils # 8.3 Lymphocytes # 2.3 Monocytes # 0.9 Eosinophils # 0.0 Basophils # 0.0 BUN 7 Creatinine 0.66 Est GFR ( Amer) > 60 Est GFR (Non-Af Amer) > 60 BUN/Creatinine Ratio 11 Uric Acid 7.9 H AST 26 ALT 11 Lactate Dehydrogenase 210 Urine Color Urine Clarity Urine pH Ur Specific [place] Urine Protein Urine Glucose (UA) Urine Ketones Urine Blood Urine Nitrite Urine Bilirubin Urine Urobilinogen Ur Leukocyte Esterase Urine Total Volume 2.21 H Urine Creatinine 62 Ur Creatinine 24 Hour 1370 Creatinine Clearance 153 Ur Total Protein 24 Hr Protein/Creatinin Ratio Urine Total Protein Urine Opiates Screen Ur Barbiturates Screen Ur Phencyclidine Scrn Ur Amphetamines Screen U Benzodiazepines Scrn Urine Cocaine Screen U Marijuana (THC) Screen Ur Drug Screen Interp Screen Baby's Blood Type Mother's Blood Type Rhogam Indicated Rhogam Req for Mother 06/21/18 06/22/18 06/22/18 19:50 02:27 02:27 WBC 14.3 H RBC 3.31 L Hgb 10.8 L Hct 31.5 L MCV 95.2 MCH 32.6 MCHC 34.3 RDW 14.3 Plt Count 128 L MPV 12.5 H Immature Gran % 0.7 Seg Neutrophils % 81.1 Lymphocytes % 11.4 Monocytes % 6.7 Eosinophils % 0.0 Basophils % 0.1 Neutrophils # 11.6 H Lymphocytes # 1.6 Monocytes # 1.0 Eosinophils # 0.0 Basophils # 0.0 BUN 8 Creatinine 0.57 L Est GFR ( Amer) > 60 Est GFR (Non-Af Amer) > 60 BUN/Creatinine Ratio 14 Uric Acid 7.9 H AST 26 ALT 10 Lactate Dehydrogenase 214 Urine Color Urine Clarity Urine pH Ur Specific [place] Urine Protein Urine Glucose (UA) Urine Ketones Urine Blood Urine Nitrite Urine Bilirubin Urine Urobilinogen Ur Leukocyte Esterase Urine Total Volume Urine Creatinine Ur Creatinine 24 Hour Creatinine Clearance Ur Total Protein 24 Hr Protein/Creatinin Ratio Urine Total Protein Urine Opiates Screen Ur Barbiturates Screen Ur Phencyclidine Scrn Ur Amphetamines Screen U Benzodiazepines Scrn Urine Cocaine Screen U Marijuana (THC) Screen Ur Drug Screen Interp Screen NEGATIVE Baby's Blood Type A RH POSITIVE Mother's Blood Type O RH NEGATIVE Rhogam Indicated YES Rhogam Req for Mother 1 Labs on day of discharge: Labs from last 24 hours 06/21/18 19:50 Screen NEGATIVE Baby's Blood Type A RH POSITIVE Mother's Blood Type O RH NEGATIVE Rhogam Indicated YES Rhogam Req for Mother 1 Date of admission: 06/19/18 22:54 Primary care physician: Moanlisa Farias CNP Discharging clinician: Minal Webb Anticipated date of discharge: 06/23/18 - Patient Status Disposition: Home, Self-Care Condition: Good Functional capacity at discharge: independent ambulation Overall status at discharge: patient is progressing back to baseline - Discharge Instructions Follow Up With: Monalisa Farias CNP [Primary Care Provider] - Berry De Leon MD [Partnered Physician] - - Diet and Activity Activity: increase activity as tolerated Diet: regular diet Hospital Course Reason for admission: other (preeclampsia) Delivery: section Episiotomy: none Laceration: none Other procedures: none complications: none Discharge diagnosis: IUP at term delivered baby: male Hospital course: - Date of procedure: 06/21/18 Preop diagnosis: other (gestational hypertension with intractable headache ( probable preeclampsia), macrosomia, desires primary ) Post-op diagnosis: same Procedure: section, primary low transverse Surgeon: Berry De Leon Quantitated Blood Loss: 500 Was there an credentialing assistant present: Yes Disability Insurance Claim Examiner: Risa Corona Anesthesia Type: Spinal Disposition: L&D Recovery Room Specimens: Placenta - (s) A Infant Delivery Date: 06/21/18 Delivery Time: 17:46 Presentation: vertex Gender: Male Viability: Viable Pounds: 8 Ounces: 11 at 1 minute: 8 at 5 minutes: 9 Specimens collected: cord blood Placenta: spontaneous Cord: nuchal cord, 3 umbilical vessels course uncomplicated Time Attestation: Total time spent providing and/or coordinating discharge services: - VTE Reasons for not Prescribing Prophylaxis: Treatment not Indicated - Low risk for VTE Documentation of Mechanical Device: Intermittent pneumatic compression device Exam - Constitutional Vitals: Temp Pulse Resp BP Pulse Ox 98.1 F 92 16 115/79 100 06/23/18 07:32 06/23/18 07:32 06/23/18 08:26 06/23/18 07:32 06/23/18 07:32 General appearance IM: A&O X 3 - Respiratory Respiratory exam: Present: CTAB - Cardiovascular Cardiovascular exam IM: Present: RRR - GI/Abdominal GI/Abdominal exam IM: soft, no peritoneal signs Incision: dry, intact Additional comments: steri-strips intact, no erythema or warmth - Uterine Tone: Firm - Extremities Exam Extremities exam IM: Present: pedal edema (2+ bilaterally to middle young) - Neurological Exam Neurological exam: normal gait, oriented X3 - Psychiatric Additional comments: reports good mood
== END 2018-06-23 11:30 | disposition home or self-care (01) | DRG 766 ==
LOC: 1NENULAB → 1NENUOBS 06-20 12:03
PROVIDERS: ADMIT Advanced Practice Midwife; ATTEND Advanced Practice Midwife